=== PATIENT | female | born 1990 | race Caucasian/White ===

== ENCOUNTER → 2017-11-11 07:09 | Outpatient (CLI) | payer OTHER, SELFPAY ==
--- NOTE | 2017-11-11 | DI.MRI.S_ITS ---
PROCEDURE: MR KNEE LT WO CON INDICATIONS: LEFT KNEE PAIN TECHNIQUE: Noncontrast sagittal PD fast spin echo and T2 fast spin echo with fat saturation, sagittal 3-D FLASH with fat saturation; coronal T1 spin echo and PD fast spin echo with fat saturation, and axial PD fast spin echo with fat saturation through the knee. COMPARISON: None. FINDINGS: Image quality: Excellent. Menisci: The medial and lateral menisci demonstrate normal morphology and internal signal. The meniscal root ligaments appear intact. Cruciate ligaments: The anterior and posterior cruciate ligaments appear intact. Medial structures: The medial collateral ligament appears intact. The posterior oblique ligament, semimembranosus tendon insertions, oblique popliteal ligament, and meniscocapsular junction appear intact. Visualized portions of the pes anserinus tendons appear normal. No abnormal bursal fluid. Lateral structures: The lateral collateral ligament, long and short heads of the biceps femoris tendon appear intact. The popliteus tendon appears normal; the popliteofibular ligament appears intact. The posterosuperior and anteroinferior popliteomeniscal fascicles appear intact. The arcuate and fabellofibular ligaments appear intact, on either side of the lateral inferior geniculate artery. Iliotibial band appears normal. Anterior structures: The quadriceps and patellar tendons appear intact. Patellar alignment is mildly abnormal, with a shallow trochlear groove and thinning of the articular cartilage of the lateral facet of the patellofemoral joint, including reactive mild marrow edema deep to the area of the articular cartilage at the apex of the patella at the knee midline. No femoral trochlear dysplasia or ventral trochlear prominence. No edema in the infrapatellar fat pad. Bones and cartilage: No bone marrow contusions or fractures. The cartilage of the medial and lateral femorotibial compartments, as well as the patellofemoral compartment, appears normal in thickness. Joint space: There is physiologic knee joint fluid. No Sarmiento's cyst. Normal appearing synovial plicae are incidentally noted. IMPRESSION: No meniscal tear is found, no intra-articular loose bodies identified. 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 Dictated by: Josemanuel Ochoa M.D. on 11/11/2017 at 15:33 Approved by: Josemanuel Ochoa M.D. on 11/11/2017 at 15:36
== END ==
PROVIDERS: Visit Provider General Practice
DX: M17.12 Unilateral primary osteoarthritis, left knee (principal); M25.562 Pain in left knee; M94.262 Chondromalacia, left knee
CPT/HCPCS: 73721

== ENCOUNTER 2020-01-21 11:41 | Emergency (ER) | payer OTHER, SELFPAY ==
[2020-01-21 11:48] VITALS: BP 175/76; PULSE 77; RESP 16; TEMP 36.7; O2SAT 94; BMI 33.6
--- NOTE | 2020-01-21 12:11 | ED_ITS ---
HPI - Skin/Abscess/Foreign Bdy <YADIRA Onofre-BC - Last Filed: 01/21/20 15:12> General Chief complaint: Skin/Abscess/Foreign Body Stated complaint: rash on stomach area past week and half Time Seen by Provider: 01/21/20 11:52 Source: patient Mode of arrival: Ambulatory Limitations: no limitations History of Present Illness HPI narrative: The patient is a 29-year-old female nonsmoker who denies pertinent medical history presents with a chief complaint of a rash below her breast for about a week and a half. [place]. This steroid cream however made worse. She tried using a twice a day became increasingly itchy irritated and spreading with steroid cream. She denies any fevers nausea vomi ting diarrhea chest pain or shortness of breath. She denies any known new exposures to ointments creams lotions dryer sheets etcetera. [place] that it sounds like she has a candidiasis rash and encouraged her to be seen. She did try an oatmeal bath last night to help with the itch before bed which she found very helpful. She complains of severe itching, denies any pain. Related Data Previous Rx's Medication Instructions Recorded nystatin 1 applictn TOP TID 14 Days #30 gram 01/21/20 Allergies Allergy/AdvReac Type Severity Reaction Status Date / Time hydrocodone Allergy Verified 01/21/20 11:48 Review of Systems <LILIANA Onofre - Last Filed: 01/21/20 15:12> Review of Systems Narrative: GENERAL: Denies chills, fatigue, malaise, fever, sweats. HEENT: Denies sinus pain, ear pain, sore throat, difficulty swallowing, dizziness. RESPIRATORY: Denies dyspnea, cough, wheezing, hemoptysis, sputum. CARDIOVASCULAR: Denies chest pain, palpitations, orthopnea, edema, GASTROINTESTINAL: Denies nausea, vomiting, abdominal pain, diarrhea, constipation, melena. : Denies dysuria, frequency, incontinence, hematuria, urinary retention. MUSCULOSKELETAL: denies weakness, joint pain, or bony pain SKIN: See HPI NEUROLOGIC: Denies weakness, headache, numbness, change in speech, confusion, seizures, incoordination. PSYCHIATRIC: No concerning psychosocial issues. 12 point review of systems is negative except for those stated above Patient History <LILIANA Onofre - Last Filed: 01/21/20 15:12> Social History Smoking Status: Never smoker Smoking Status: Never smoker alcohol intake frequency: holidays/special occasions only Substance Use Type: does not use Exam <LILIANA Onofre - Last Filed: 01/21/20 15:12> Narrative Exam Narrative: GENERAL: This is a well-nourished, well-developed patient, in no acute distress HEAD: Atraumatic. Normocephalic. No temporal or scalp tenderness. EYES: Pupils equal round and reactive. Extraocular motions intact. No scleral icterus. No injection or drainage. ENT: Nose without bleeding, purulent drainage or septal hematoma. Wearing a mask. Airway patent. NECK: Trachea midline. No JVD or lymphadenopathy. Supple, nontender, no meningeal signs. CARDIOVASCULAR: Regular rate and rhythm RESPIRATORY: Clear to auscultation. Breath sounds equal bilaterally. No wheezes, rales, or rhonchi. No cough. No increased respiratory effort. No accessory muscle use. EXTREMITIES: No clubbing, cyanosis, or edema. No joint tenderness, effusion, or edema noted. BACK: Nontender without deformity or crepitance. No flank tenderness. NEURO: AOx3. Interactive. Age appropriate. SKIN: Erythematous rash along anterior chest wall just below the bra line. Plaques and papules noted, no crusting or drainage noted. Slight scratch stoll noted. Initial Vital Signs Initial Vital Signs: Vital Signs Temperature 98.1 F 01/21/20 11:48 Pulse Rate 77 01/21/20 11:48 Respiratory Rate 16 01/21/20 11:48 Blood Pressure 175/76 H 01/21/20 11:48 Pulse Oximetry 94 01/21/20 11:48 <Edda Diaz MD - Last Filed: 01/21/20 16:21> Initial Vital Signs Initial Vital Signs: Vital Signs Temperature 98.1 F 01/21/20 11:48 Pulse Rate 77 01/21/20 11:48 Respiratory Rate 16 01/21/20 11:48 Blood Pressure 175/76 H 01/21/20 11:48 Pulse Oximetry 94 01/21/20 11:48 Scores <MADISON OnofreP-BC - Last Filed: 01/21/20 15:12> GCS [place] coma scale eye opening: Spontaneous Melody coma scale verbal response: Orientated [place] coma scale motor response: Obey commands [place] coma scale total score: 15 Course <Cyndee SebastianLILIANA nguyen - Last Filed: 01/21/20 15:12> Vital Signs Vital signs: Vital Signs - 8 hr 01/21/20 11:48 Temperature 98.1 F Pulse Rate 77 Respiratory Rate 16 Blood Pressure 175/76 H Pulse Oximetry 94 <Edda Diaz MD - Last Filed: 01/21/20 16:21> Vital Signs Vital signs: Vital Signs - 8 hr 01/21/20 11:48 Temperature 98.1 F Pulse Rate 77 Respiratory Rate 16 Blood Pressure 175/76 H Pulse Oximetry 94 MDM - Skin/Abscess/Foreign Bdy <Cyndee LILIANA Lara - Last Filed: 01/21/20 15:12> MDM Narrative Medical decision making narrative: The patient is a 29-year-old female who presents with a chief complaint of rash below her bra line. Exam correlates with candidiasis, emphasized by the fact that her rash got worse with steroids. Patient placed on nystatin. Encouraged follow-up with primary provider and coming back to the emergency department for any acute concerns. Patient has no questions or concerns upon discharge and states understanding return precautions as well as follow-up care. Discharge Plan Departure Patient Disposition: Home Clinical Impression: Candidiasis of skin Discharge Date/Time: 01/21/20 12:38 Instructions: Yeast Infection-Skin Activity Restrictions/Additional Instructions: Thank you for trusting us with your care today. I have given you a prescription of an antifungal powder As discussed, please follow-up with primary care provider in the next few days to make sure it is getting better. Please come back to the emergency department for any acute concerns. Prescriptions: New nystatin 100,000 unit/gram powder 1 applictn TOP TID 14 Days Qty: 30 RF: 0 Referrals: [facility] [Outside] <Edda Diaz MD - Last Filed: 01/21/20 16:21> Cosign ED Attending [facility] Attestation: I was immediately available in the department for consultation throughout this patient's visit. I agree with documentation as above. Edda Diaz MD
== END 2020-01-21 12:38 | disposition home or self-care (01) ==
PROVIDERS: Emergency Provider Nurse Practitioner Family
DX: B37.2 Candidiasis of skin and nail (principal)
CPT/HCPCS: 99281